=== PATIENT | male | born 1980 | race Two or more races ===

== ENCOUNTER 2016-11-25 13:22 | Emergency (ER) | payer MEDICAID ==
--- NOTE | 2016-11-25 13:50 | EDPHY ---
Mental Health General Previous Psychiatric History: previous inpatient psychiatric admission, schizophrenia Time Patient Placed on M1 Hold: 12:30 Time Medically Cleared for Psychiatric Evaluation: 14:48 Time of Transfer of Care: 19:[address] To [address]:: [place] Course: patient remained stable over course of my shift, no additional interventions, eval by mental health, awaiting acceptance to inpatient bed Narrative: 9:55 p.m. the patient is accepted at [facility] by Dr. Ordaz. Transfer paperwork completed. (Charanjit Ledezma) CHIEF COMPLAINT: M1 hold, suicidal HISTORY OF PRESENT ILLNESS: 36-year-old male presents emergency department on an M1 hold from [facility]. Patient has a history of schizophrenia, has been off of his medications for 5 months. Patient states his psychiatrist told him to come off of his medications because they were giving him "lock jaw". Patient says he usually only hears 3 voices, he is now hearing more than 8 voices. They are telling him bad things about himself. He reports he is not suicidal though was asking the staff at the senior living for a rope. Patient denies homicidal ideations. He denies alcohol and drug use other than marijuana. REVIEW OF SYSTEMS: A comprehensive 10 point review of systems is otherwise negative aside from elements mentioned in the history of present illness. (Latrice Gill) Medical Decision Makin-report passed on to Dr. Ledezma at the end of my shift. Patient has been evaluated by mental health and they are seeking placement for inpatient psychiatric treatment. (Latrice Gill) - Objective Vital Signs: Initial Vital Signs Temperature (C) 36.5 C 11/25/16 14:21 Heart Rate 59 L 11/25/16 14:21 Respiratory Rate 16 11/25/16 14:21 Blood Pressure 105/73 11/25/16 14:21 O2 Sat (%) 95 11/25/16 14:21 O2 Delivery Mode Room Air O2 (L/minute) 94 Allergies/Adverse Reactions: No Known Allergies Allergy (Unverified 11/25/16 14:37) Home Medications: Medication Instructions Recorded NK [No Known Home Meds] 11/25/16 Laboratory Results: Laboratory Results 11/25/16 14:15 11/25/16 14:15 Departure - Departure Disposition: Other Psych, Not [facility] Clinical Impression: Schizophrenia, Suicidal ideation Condition: Fair Instructions: Schizophrenia (ED) Referrals: DEVON NGO MD [Other] - As per Instructions
[2016-11-25 14:23] LABS: % IMMATURE GRANULYOCYTES 0.4 % (0.0-1.1); ABSOLUTE IMMATURE GRANULOCYTES 0.03 10^3/uL (0.00-0.10); ADD DIFF? NO; ADD MORPH? NO; ADD SCAN? NO; ATYPICAL LYMPHOCYTE FLAG 30 (0-99); FRAGMENT RBC FLAG 0 (0-99); HEMATOCRIT 46.9 % (40.0-51.0); HEMOGLOBIN 16.3 g/dL (13.7-17.5); LEFT SHIFT FLG 0 (0-99); LIPEMIA HEMOLYSIS FLAG 90 (0-99); MEAN CELL HEMOGLOBIN 31.8 pg (27.9-34.1); MEAN CELL HEMOGLOBIN CONCENTR. 34.8 g/dL (32.4-36.7); MEAN CELL VOLUME 91.6 fL (81.5-99.8); MEAN PLATELET VOLUME 9.5 fL (8.7-11.7); PLATELET CLUMPS FLAG 0 (0-99); PLATELET COUNT 253 10^3/uL (150-400); RED BLOOD CELL COUNT 5.12 10^6/uL (4.40-6.38); RED CELL DISTRIBUTION WIDTH 13.3 % (11.5-15.2)
[2016-11-25 14:38] LABS: ANION GAP 6 mEq/L (8-16); CARBON DIOXIDE 25 mEq/l (22-31); CHLORIDE 107 mEq/L (97-110); CREATININE 0.8 mg/dL (0.7-1.3); ETHANOL SERUM < 10 mg/dL (0-10); GLOMERULAR FILTRATION RATE > 60; GLUCOSE 99 mg/dL (70-100); POTASSIUM 3.8 mEq/L (3.5-5.2); SODIUM 138 mEq/L (134-144)
[2016-11-25 17:34] VITALS: PULSE 71; TEMP 98.1
[2016-11-25 22:20] VITALS: BP 120/73; RESP 19; O2SAT 90
== END 2016-11-25 22:19 ==
LOC: EDUNIT#
DX: R45.851 Suicidal ideations (principal); F20.9 Schizophrenia, unspecified
CPT/HCPCS: 80305; G0480